=== PATIENT | male | born 1985 | race Caucasian/White ===

== ENCOUNTER 2016-08-05 23:16 | Emergency (ER) | payer MEDICAID ==
--- NOTE | 2016-08-06 07:08 | RAD ---
LUMBAR SPINE ROUTINE 2 3 VWS HISTORY: Slipped and fell down stairs. Low back pain. COMPARISONS: None. FINDINGS: AP and lateral views of the lumbar spine demonstrate hypoplastic 12th ribs. The vertebral body height and alignment appears to be intact. Subtle endplate irregularity is seen involving the upper lumbar spine suggesting Schmorl's node formation. The disc spaces are relatively well-maintained. The posterior elements are intact. The sacrum and sacroiliac joints are unremarkable. IMPRESSION: 1. Minimal spondylosis changes of the upper lumbar spine. No significant compression deformity is visualized.
== END 2016-08-06 00:58 | disposition home or self-care (01) ==
LOC: ED 23:16
DX: M54.5 Low back pain (principal); E78.5 Hyperlipidemia, unspecified; E78.00 Pure hypercholesterolemia, unspecified; I12.9 Hypertensive chronic kidney disease with stage 1 through stage 4 chronic kidney disease, or unspecified chronic kidney disease; N18.9 Chronic kidney disease, unspecified; Z79.899 Other long term (current) drug therapy; Z79.82 Long term (current) use of aspirin; W10.9XXA Fall (on) (from) unspecified stairs and steps, initial encounter